=== PATIENT | female | born 1970 | race Caucasian/White ===

== ENCOUNTER → 2020-04-13 14:31 | Outpatient (BNVA) | payer MEDICARE, MEDICAID, SELFPAY | PROVIDERS: Family Provider Internal Medicine; Visit Provider Nurse Practitioner | DX: J45.909 Unspecified asthma, uncomplicated (principal); R05 Cough | CPT/HCPCS: 71046 ==

== ENCOUNTER 2020-07-29 11:39 | Outpatient (CLI) | payer MEDICARE, MEDICAID, SELFPAY ==
--- NOTE | 2020-07-29 11:49 | MM_ITS ---
WS: [id number] BILATERAL SCREENING DIGITAL MAMMOGRAM WITH CAD HISTORY: SCREENING COMPARISON: 07/09/2018, 07/27/2019 and 05/27/2015 Bilateral CC and MLO views submitted. Computer aided detection analyzed. Breast composition: There are scattered areas of fibroglandular density. No suspicious masses, microc alcifications or architectural distortion. Stable parenchymal pattern. Stable 8 mm nodule towards the LEFT axilla tail is probably a lymph node. MM/[id number] IMPRESSION: BI-RADS: 2-Benign FOLLOW UP: 1 Year Follow-up
== END 2020-07-29 11:40 | disposition home or self-care (01) ==
LOC: RADSHAW 11:46
PROVIDERS: PCP Internal Medicine; Visit Provider Internal Medicine
DX: Z12.31 Encounter for screening mammogram for malignant neoplasm of breast (principal)
CPT/HCPCS: 77067

== ENCOUNTER → 2020-12-07 09:33 | Outpatient (BNVA) | payer MEDICARE, MEDICAID, SELFPAY | PROVIDERS: PCP Internal Medicine; Visit Provider Nurse Practitioner Family | DX: A08.4 Viral intestinal infection, unspecified (principal); R11.0 Nausea; R73.9 Hyperglycemia, unspecified | CPT/HCPCS: 36416; 80053; 82962; 83036; 85025 ==

== ENCOUNTER → 2020-12-29 11:43 | Outpatient (BNVA) | payer MEDICARE, MEDICAID, SELFPAY | PROVIDERS: PCP Internal Medicine; Visit Provider Internal Medicine | DX: Z01.812 Encounter for preprocedural laboratory examination (principal); Z20.822 Contact with and (suspected) exposure to COVID-19 | CPT/HCPCS: 87635 ==

== ENCOUNTER 2021-01-02 11:02 | Outpatient (CLI) | payer MEDICARE, MEDICAID, SELFPAY ==
--- NOTE | 2021-01-02 13:28 | PFTS_ITS ---
Date of Study:01/02/21 Date of Dictation: MECHANICS: Forced vital capacity (FVC) is normal. Forced expiratory volume in one second (FEV1) is normal. FEV1/FVC is reduced. FLOW VOLUME LOOP: Reduced flow at all lung volumes. LUNG VOLUMES: Not measured DIFFUSING CAPACITY FOR CARBON MONOXIDE: Not measured. INTERPRETATION: Postbronchodilator spirometry is consistent with mild airflow obstruction. MTDD
== END 2021-01-02 11:03 | disposition home or self-care (01) ==
LOC: RT 11:03
PROVIDERS: PCP Internal Medicine; Visit Provider Internal Medicine
DX: J45.20 Mild intermittent asthma, uncomplicated (principal)
CPT/HCPCS: 94060; J7611

== ENCOUNTER 2021-03-20 11:44 | Outpatient (CLI) | payer MEDICARE, MEDICAID, SELFPAY ==
[2021-03-21 15:57] LABS: Alternaria Alternata (M6) Ige <0.10 kU/L; Alternaria Class 0; Bermuda Class 0; Bermuda Grass (G2) Ige <0.10 kU/L; Cat Dander (E1) Ige 0.51 kU/L; Cat Dander Class 1; Common Ragweed (Short) (W1) Ig 0.63 kU/L; D. Farinae Class 2; Dermatophagoides Class 2; Dermatophagoides Pteronyssinus 1.45 kU/L; Dog Dander (E5) Ige <0.10 kU/L; Dog Dander Class 0; Elm (T8) Ige <0.10 kU/L; Elm Class 0; English Plantain (W9) Ige <0.10 kU/L; English Plantain Class 0; House Dust (Greer) (H1) Ige 0.34 kU/L; House Dust (Hollister- Stier) 0.24 kU/L; House Dust Class 0/1; Immunoglobulin E 44 kU/L (<OR=114); Immunoglobulin E 45 kU/L (<OR=114); Johnson Grass (G10) Ige <0.10 kU/L; Johnson Grass Cl 0; June Grass Class 1; June Grass(Kentucky Blue) (G8) 0.58 kU/L; Lamb'S Quarters (Goose Foot) <0.10 kU/L; Lamb'S Quarters Class 0; Maple (Box Elder) (T1) Ige <0.10 kU/L; Maple Class 0; Meadow Fescue (G4) Ige 0.73 kU/L; Meadow Fescue Class 2; Mucor Racemosus Class 0; Oak (T7) Ige <0.10 kU/L; Oak Class 0; Penicillium Class 0; Penicillium Notatum (M1) Ige <0.10 kU/L; Perennial Rye Grass (G5) Ige 0.62 kU/L; Perennial Rye Grass Class 1; Ragweeed Class 1; Rough Marsh Elder (W16) Ige <0.10 kU/L; Rough Marsh Elder Class 0; Sweet Vernal Class 1; Timothy Grass (G6) Ige 0.55 kU/L; Timothy Grass Class 1
[2021-03-24 10:37] LABS: Aspergillus Fumigatus, Igg Ab, 8.1 mg/L (<=102)
== END 2021-03-20 11:45 | disposition home or self-care (01) ==
LOC: LAB 11:54
PROVIDERS: PCP Internal Medicine; Visit Provider Internal Medicine Pulmonary Disease
DX: J30.89 Other allergic rhinitis (principal)
CPT/HCPCS: 36415; 82785; 86003

== ENCOUNTER 2021-07-10 18:54 | Emergency (ER) | payer OTHER, MEDICAID, SELFPAY ==
[2021-07-10 19:46] VITALS: BP 140/87; PULSE 87; RESP 24; TEMP 36.7; O2SAT 99; BMI 30.4
--- NOTE | 2021-07-10 20:55 | XRR_ITS ---
PROCEDURE INFORMATION: Exam: XR Chest Exam date and time: 07/10/2021 8:55 PM Age: 51 years old Clinical indication: Dyspnea TECHNIQUE: Imaging protocol: XR of the chest. Views: 1 view. COMPARISON: CR XR chest 2V* [id number] 04/13/2020 2:30 PM FINDINGS: Lungs: As seen in mid inspiration, the lungs are clear. Pleural spaces: Unremarkable. No pleural effusion. No pneumothorax. Heart/Mediastinum: Unremarkable. No cardiomegaly. Bones/joints: Unremarkable. XR/XR chest 1V portable [id number] IMPRESSION: No acute findings.
--- NOTE | 2021-07-10 23:00 | PC.NURSE ---
placed pt into ED room and she stated that she would rather go home and LWBS at 2301
== END 2021-07-10 23:01 ==
LOC: ER 19:39
PROVIDERS: Emergency Provider Family Medicine; PCP Internal Medicine
DX: Z53.21 Procedure and treatment not carried out due to patient leaving prior to being seen by health care provider (principal)
CPT/HCPCS: 71045; 71046

== ENCOUNTER → 2021-07-12 15:33 | Outpatient (BNVA) | payer OTHER, MEDICAID, SELFPAY | PROVIDERS: PCP Internal Medicine; Visit Provider Nurse Practitioner Family | DX: R05 Cough (principal) | CPT/HCPCS: 71046; 85025 ==

== ENCOUNTER 2021-07-31 09:22 | Outpatient (CLI) | payer OTHER, MEDICAID, SELFPAY ==
--- NOTE | 2021-07-31 09:29 | MM_ITS ---
WS: [id number] BILATERAL SCREENING DIGITAL MAMMOGRAM WITH CAD HISTORY: SCREENING COMPARISON: 07/29/2020 and 07/27/2019 Bilateral CC and MLO views submitted. Computer aided detection analyzed. Breast composition: The breasts are heterogeneously dense, which may obscure small masses. No suspici ous masses, microcalcifications or architectural distortion. Well-circumscribed high density mass juan suring 8 mm in the superior posterior LEFT breast is stable. Benign cluster of calcifications in the anterior RIGHT breast. MM/[id number] IMPRESSION: BI-RADS: 2-Benign FOLLOW UP: 1 Year Follow-up
== END 2021-07-31 09:23 | disposition home or self-care (01) ==
LOC: RADSHAW 09:27
PROVIDERS: PCP Internal Medicine; Visit Provider Nurse Practitioner Family
DX: Z12.31 Encounter for screening mammogram for malignant neoplasm of breast (principal)
CPT/HCPCS: 77067

== ENCOUNTER → 2022-05-28 08:54 | Outpatient (BNVA) | payer MEDICARE, MEDICAID, SELFPAY | PROVIDERS: PCP Internal Medicine; Visit Provider Internal Medicine Pulmonary Disease | DX: J82.83 Eosinophilic asthma (principal); J45.50 Severe persistent asthma, uncomplicated; Z79.52 Long term (current) use of systemic steroids; R09.82 Postnasal drip; Z91.09 Other allergy status, other than to drugs and biological substances | CPT/HCPCS: 71046; 99214 ==

== ENCOUNTER → 2022-07-27 08:52 | Outpatient (BNVA) | payer MEDICARE, MEDICAID, SELFPAY | PROVIDERS: PCP Internal Medicine; Visit Provider Internal Medicine Pulmonary Disease | DX: J45.50 Severe persistent asthma, uncomplicated (principal); R09.82 Postnasal drip; Z79.52 Long term (current) use of systemic steroids; Z91.09 Other allergy status, other than to drugs and biological substances; J82.83 Eosinophilic asthma | CPT/HCPCS: 99214 ==

== ENCOUNTER 2022-08-13 11:52 | Outpatient (CLI) | payer MEDICARE, MEDICAID, SELFPAY ==
--- NOTE | 2022-08-13 12:59 | MM_ITS ---
WS: [id number] BILATERAL 3D TOMOSYNTHESIS DIGITAL SCREENING MAMMOGRAPHY WITH CAD CLINICAL INFORMATION: SCREENING HISTORY: Screening mammogram. No current complaints. COMPARISON: July 31, 2021 TECHNIQUE: Bilateral CC and MLO views. FINDINGS: The breasts are composed of heterogeneous fibroglandular density tissue, which can limit the detectio n of small underlying mass lesions. No suspicious mass, asymmetry, calcifications, or architectural d istortion. No evidence of malignancy. Lucent centered calcification RIGHT breast. MM/[place] [id number] IMPRESSION: BI-RADS: 2-Benign FOLLOW UP: 1 Year Follow-up Recommend return to annual screening mammography.
== END 2022-08-13 11:53 | disposition home or self-care (01) ==
LOC: RAD 11:52
PROVIDERS: PCP Internal Medicine; Visit Provider Internal Medicine
DX: Z12.31 Encounter for screening mammogram for malignant neoplasm of breast (principal)
CPT/HCPCS: 77063; 77067

== ENCOUNTER 2022-10-29 12:39 | Outpatient (CLI) | payer MEDICARE, MEDICAID, SELFPAY | END 2022-10-29 12:40 | disposition home or self-care (01) | PROVIDERS: PCP Internal Medicine; Visit Provider Internal Medicine | DX: J45.41 Moderate persistent asthma with (acute) exacerbation (principal) | CPT/HCPCS: 94060; 94729; J7613 ==

== ENCOUNTER 2023-01-07 10:43 | Outpatient (CLI) | payer MEDICARE, MEDICAID, SELFPAY ==
--- NOTE | 2023-01-07 10:58 | XRR_ITS ---
PROCEDURE INFORMATION: Exam: XR Right Shoulder Exam date and time: 01/07/2023 11:19 AM Age: 52 years old Clinical indication: Pain; Shoulder; Right; Additional info: Pain in R shoulder TECHNIQUE: Imaging protocol: Radiologic exam of the right shoulder. Views: 2 or more views. COMPARISON: CR XR chest 2V* [id number] 07/12/2021 3:33 PM FINDINGS: Bones/joints: Negative for acute bony abnormality. Soft tissues: Normal. XR/XR shoulder RT min 2V* [id number] IMPRESSION: No acute findings.
== END 2023-01-07 10:44 | disposition home or self-care (01) ==
LOC: RAD 10:48
PROVIDERS: PCP Internal Medicine; Visit Provider Internal Medicine
DX: M25.511 Pain in right shoulder (principal)
CPT/HCPCS: 73030

== ENCOUNTER 2023-01-21 06:00 | Outpatient (RCR) | payer MEDICARE, MEDICAID, SELFPAY | END 2023-02-10 23:59 | disposition home or self-care (01) | LOC: APT 06:00 | PROVIDERS: Visit Provider Nurse Practitioner Family | DX: M25.511 Pain in right shoulder (principal) | CPT/HCPCS: 97110; 97161 ==

== ENCOUNTER 2023-02-11 06:00 | Outpatient (RCR) | payer MEDICARE, MEDICAID, SELFPAY | END 2023-03-13 23:59 | disposition home or self-care (01) | LOC: APT 06:00 | PROVIDERS: Visit Provider Nurse Practitioner Family | DX: M25.511 Pain in right shoulder (principal) | CPT/HCPCS: 97110; 97112; 97530 ==

== ENCOUNTER 2023-02-17 14:25 | Emergency (ER) | payer MEDICARE, MEDICAID, SELFPAY ==
[2023-02-17 14:32] VITALS: BP 143/93; PULSE 89; RESP 24; O2SAT 94
--- NOTE | 2023-02-17 14:44 | XRR_ITS ---
PROCEDURE INFORMATION: Exam: XR Chest Exam date and time: 02/17/2023 2:49 PM Age: 53 years old Clinical indication: Cough and shortness of breath; Additional info: Cough and congestion TECHNIQUE: Imaging protocol: Radiologic exam of the chest. Views: 1 view. COMPARISON: CR XR chest 2V* [id number] 07/12/2021 3:33 PM FINDINGS: Lungs: Scattered granulomas are seen in both lungs stable since prior The lungs are otherwise expanded and clear. No consolidation. Pleural spaces: Unremarkable. No pleural effusion. No pneumothorax. Heart/Mediastinum: Unremarkable. No cardiomegaly. Bones/joints: Unremarkable. XR/XR chest 1V portable [id number] IMPRESSION: 1. A few scattered granulomas in both lungs 2. Otherwise No acute findings.
--- NOTE | 2023-02-17 14:49 | ECG_ITS ---
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 Measurements Intervals Milton Rate: 86 P: 66 NJ: 159 QRS: 16 QRSD: 92 T: 58 QT: 349 QTc: 420 Interpretive Statements SINUS RHYTHM Compared to ECG 11/08/2017 17:04:17 T-wave abnormality no longer present Electronically Signed On 02-17-2023 16:20:56 CDT by Omar May M.D. [id number]
--- NOTE | 2023-02-17 15:03 | ED_ITS ---
HPI - SOB/Dyspnea General: Chief Complaint: Shortness of Breath/Dyspnea Stated Complaint: SOB Time Seen by Provider: 02/17/23 14:40 History of Present Illness: HPI Narrative: 53-year-old female presents emergency department chief complaint of progressive shortness of breath and difficulty breathing apparently when the patient got home from [employer] people are outside cutting the grass when she developed significant shortness of breath wheezing and difficulty breathing patient has a known history of emphysema as well as asthma. EMS was contacted which gave her Solu-Medrol and neb treatment prior to arrival patient reports improvement of her symptoms he reports no current chest pain or palpitations or any other associated issues. Associated symptoms: Deny abdominal pain, chest pain, extremity pain, fever(s), nausea, palpitations or vomiting Review of Systems General: Reports: 10 or more systems reviewed and unremarkable except in HPI and below Const: Denies: fever(s), chills, fatigue or malaise Eyes: Denies: change in vision or blurry vision Card: Denies: chest pain or palpitations Resp: Reports: dyspnea, productive cough and wheezing GI: Denies: abdominal pain, nausea or vomiting : Denies: flank pain Musc: Denies: extremity pain or extremity swelling Skin/Breast: Denies: rash or pruritus Neuro: Denies: headache(s) Psych: Denies: anxiety or depression Sarabjit/Lymph: Denies: easy bleeding All/Imm: Denies: urticaria, throat swelling or facial swelling PFS ED PFSH: Medical History (Updated 02/17/23 @ 18:48 by Josh Morin) Anxiety Asthma Depression Surgical History History of cholecystectomy History of hysterectomy History of tubal ligation Family History Other Heart disease Denies family history of Bleeding disorder Social History Smoking and tobacco status: never smoked Second hand smoke exposure: Yes Smoking risk assessment/counseling performed?: No Alcohol intake: never Desire information about alcohol rehabilitation?: No Counseling given: No Substance/Drug Use: never Desire information about substance/drug rehabilitation?: No Counseling given: No Adopted: No Caregiver/support person: No Lives independently: Yes Household members: none Housing: House Marital status: Single Number of children: 0 service: No Current occupational status: employed Pets and animals: Yes Do you think of yourself as: Straight/Heterosexual Current gender identity: Female Physical Exam Narrative: EXAM NARRATIVE: Patient appears currently nontoxic appears in no acute respiratory distress Const: COMMON NORMALS: no acute distress, patient oriented x3 and healthy appearing HENMT: COMMON NORMALS: normocephalic and atraumatic HEAD & SCALP: normocephalic and atraumatic Eye: COMMON NORMALS: Equal, round and reactive pupils present and EOMs intact bilaterally PUPIL: Yes Equal, round and reactive pupils present Neck/C-Spine: COMMON NORMALS: full ROM, supple and no JVD Lymph: LYMPHATIC: no lymphadenopathy noted Chest: COMMONS NORMALS: normal inspection of the chest and normal palpation of entire chest wall Resp: OTHER: Diminished breath sounds present bilaterally with no obvious wheezing crackles rales or rhonchi noted currently mild tachypnea apparent Cardio: COMMON NORMALS: no JVD, regular rate and regular rhythm RATE: regular rate RHYTHM: regular rhythm GI: COMMON NORMALS: Normal to inspection, nondistended, normoactive bowel sounds present, Soft to palpation and non-tender INSPECTION: Yes normal to inspection PALPATION: Yes Soft to palpation : COMMON NORMALS: Yes no CVA tenderness BLADDER/KIDNEY EXAM: Yes no CVA tenderness Back/Pelvis: COMMON NORMALS: no CVA tenderness Extremity: COMMON NORMALS: normal to inspection and full ROM Neuro: COMMON NORMALS: patient oriented x3, CN's II-XII intact bilaterally, moves all extremities and no focal motor deficits Psych: COMMON NORMALS: mental status grossly normal, Normal thought process present, cooperative and normal affect THOUGHT PROCESS: Normal thought process present Skin: COMMON NORMALS: no rashes or lesions noted GENERAL SKIN EXAM: no rashes or lesions noted Course Vital Signs: Vital signs: Vital Signs Pulse Rate 75 02/17/23 18:35 Respiratory Rate 24 H 02/17/23 14:32 Blood Pressure 143/93 02/17/23 14:32 Pulse Oximetry 95 02/17/23 18:35 Oxygen Delivery Me thod Room Air 02/17/23 18:35 Oxygen Flow Rate 1 02/17/23 14:32 MDM - SOB/Dyspnea Medical Decision Making Patient's symptoms and condition Concern for asthma exacerbation versus acute bronchitis I will continue to follow and treat as needed. Lab work and imaging came back reassuring also tachycardia patient is to our troponin came back unremarkable patient will be treated as acute bronchitis versus acute asthma exacerbation did advise patient further follow-up with primary care in 3 to 5 days in which she was advised to return the interim if any of her symptoms persist or worse. Lab Data 02/17/23 15:23 02/17/23 15:23 Labs/Radiology: Radiology Impressions Chest X-Ray 02/17/23 14:44 IMPRESSION: 1. A few scattered granulomas in both lungs 2. Otherwise No acute findings. Laboratory Results WBC 8.3 10^3/uL (4.0-10.0) 02/17/23 15: RBC 4.19 10^6/uL (4.1-5.3) 02/17/23 15: Hgb 11.8 g/dL (11.5-15.3) 02/17/23 15:23 Hct 36.7 % (37.0-47.0) L 02/17/23 15: MCV 87.6 fl (81-99) 02/17/23 15:23 MCH 28.2 pg (28.0-34.0) 02/17/23 15: MCHC 32.2 g/dL (30.0-36.0) 02/17/23 15: RDW 13.5 % (12.1-15.1) 02/17/23 15: Plt Count 348 10^3/cmm (130-400) 02/17/23 15: MPV 8.6 fL (7.4-10.4) 02/17/23 15:23 Neut % (Auto) 85.4 % 02/17/23 15:23 Lymph % (Auto) 5.8 % 02/17/23 15:23 Meigs % (Auto) 6.8 % 02/17/23 15:23 Eos % (Auto) 1.3 % 02/17/23 15: Baso % (Auto) 0.2 % 02/17/23 15:23 Neut # (Auto) 7.12 10^3/uL (1.8-7.7) 02/17/23 15:23 Lymph # (Auto) 0.5 10^3/uL (0.8-4.8) L 02/17/23 15:23 Meigs # (Auto) 0.6 10^3/uL (0.2-0.9) 02/17/23 15:23 Eos # (Auto) 0.1 10^3/uL (0.0-0.8) 02/17/23 15:23 Baso # (Auto) 0.0 10^3/uL (0.0-0.1) 02/17/23 15:23 Nucleated RBC % (auto) 0 % 02/17/23 15: Nucleated RBCs # 0.0 /100WBC 02/17/23 15:23 Sodium 136 mmol/L (136-145) 02/17/23 15:23 Potassium 3.7 mmol/L (3.5-5.1) 02/17/23 15: Chloride 99 mmol/L (98-107) 02/17/23 15: Carbon Dioxide 19 mmol/L (22-29) L 02/17/23 15: Anion Gap 21.7 (5-19) H 02/17/23 15: BUN 8 mg/dL (6-20) 02/17/23 15:23 Creatinine 0.7 mg/dL (0.5-0.9) 02/17/23 15:23 GFR Calculation 87.2 mL/min (90-130) L 02/17/23 15: Glucose 99 mg/dL (65-115) 02/17/23 15: Calculated Osmolality 280 mOsm/kg (285-295) L 02/17/23 15:23 Calcium 9.4 mg/dL (8.5-10.5) 02/17/23 15:23 Total Bilirubin 0.2 mg/dL (0.15-1.2) 02/17/23 15:23 AST 21 U/L (0-32) 02/17/23 15:23 ALT 24 U/L (0-33) 02/17/23 15:23 Alkaline Phosphatase 82 U/L (35-105) 02/17/23 15:23 Troponin T Baseline 6 ng/L (0-10) 02/17/23 15:23 Troponin T 120 Minute 6.00 ng/L (0-10) 02/17/23 17:25 Delta Troponin T 0 ABS# (0-10) 02/17/23 17:25 NT-Pro-B Natriuret Pep 108 pg/mL (0-125) 02/17/23 15:23 Total Protein 7.4 g/dL (6.6-8.7) 02/17/23 15:23 Albumin 4.4 g/dL (3.5-5.2) 02/17/23 15:23 Globulin 3.0 g/dL (1.3-4.6) 02/17/23 15:23 Discharge Plan Discharge Patient Disposition: Home Clinical Impression: Asthma with exacerbation Condition: Stable Prescriptions: New prednisone 20 mg tablet 20 mg PO BID 7 Days Qty: 14 0RF albuterol sulfate 90 mcg/actuation HFA aerosol inhaler 2 inh inhalation Q4H PRN (Reason: shortness of breath or wheezing) Qty: 6.7 0RF benzonatate 100 mg capsule 100 mg PO TID PRN (Reason: cough) Qty: 14 0RF No Action ondansetron HCl [Zofran] 4 mg tablet 4 mg PO Q8H PRN (Reason: nausea and vomiting) 3 Days Qty: 9 0RF albuterol sulfate 90 mcg/actuation HFA aerosol inhaler 2 puff INHALATION Q6H PRN (Reason: Shortness Of Breath) venlafaxine [Effexor XR] 150 mg capsule,extended release 24hr 150 mg PO DAILY montelukast [Singulair] 10 mg tablet 10 mg PO DAILY topiramate [Topamax] 25 mg tablet 25 mg PO DAILY azqcohwzry-cabiqxvmyebrv-wzlh [Esgic] 50-325-40 mg tablet 1 tab PO Q4H PRN (Reason: pain) Qty: 30 0RF triamcinolone acetonide 0.1 % cream 1 applic topical TID Qty: 30 0RF Rx Instructions: large area generalized body pantoprazole 40 mg tablet,delayed release (DR/EC) 40 mg PO DAILY ferrous gluconate 324 mg (37.5 mg iron) tablet 324 mg PO DAILY fluticasone propionate 50 mcg/actuation spray,suspension 2 spray intranasal DAILY Rx Instructions: administer into each nostril budesonide-formoterol [Symbicort] 160-4.5 mcg/actuation HFA aerosol inhaler 2 puff inhalation BID cetirizine 10 mg tablet 10 mg PO DAILY PRN (Reason: Allergy Symptoms) budesonide 0.5 mg/2 mL suspension for nebulization 0.5 mg inhalation BID formoterol fumarate [Perforomist] 20 mcg/2 mL solution for nebulization 2 ml inhalation BID atorvastatin 20 mg Tablet 20 mg PO BEDTIME amlodipine 5 mg Tablet 5 mg PO DAILY meloxicam 7.5 mg Tablet 7.5 mg PO DAILY PRN (Reason: Pain) Discharge Orders: Discharge ED (Routine); Ordered 02/17/23 Ordered By: Josh Morin Referrals: [facility], [place], [Staff Physician] - 1-3 days Discharge Diet: Advance as tolerated Discharge Activity: Increase activity as tolerated Patient Instructions: Asthma Exacerbation - Adult, Bronchospasm (ED) Activity Restrictions/Additional Instructions: Please further follow-up with your primary care doctor in 2 to 3 days, please take medication as prescribed and please return the interim if any of your symptoms persist or worse Coding Level of Care Code ED Newborn Photographer for Sofia Tompkins
[2023-02-17 15:33] LABS: Basophils % 0.2 %; Eosinophils # 0.1 10^3/uL (0.0-0.8); Eosinophils % 1.3 %; Hematocrit 36.7 % (37.0-47.0); Hemoglobin 11.8 g/dL (11.5-15.3); Lymphocytes # 0.5 10^3/uL (0.8-4.8); Lymphocytes % 5.8 %; Mean Corpuscular HGB Conc 32.2 g/dL (30.0-36.0); Mean Corpuscular Hemoglobin 28.2 pg (28.0-34.0); Mean Corpuscular Volume 87.6 fl (81-99); Mean Platelet Volume 8.6 fL (7.4-10.4); Monocytes # 0.6 10^3/uL (0.2-0.9); Monocytes % 6.8 %; Neutrophils # 7.12 10^3/uL (1.8-7.7); Neutrophils % 85.4 %; Nucleated Red Blood Cells % 0 %; Platelet Count 348 10^3/cmm (130-400); Red Blood Count 4.19 10^6/uL (4.1-5.3); Red Cell Distribution Width 13.5 % (12.1-15.1); White Blood Count 8.3 10^3/uL (4.0-10.0)
[2023-02-17 16:05] LABS: Troponin(5th) Baseline 6 ng/L (0-10)
[2023-02-17 16:11] LABS: Alanine Aminotransferase 24 U/L (0-33); Albumin Level 4.4 g/dL (3.5-5.2); Alkaline Phosphatase 82 U/L (35-105); Anion Gap 21.7 (5-19); Aspartate Amino Transferase 21 U/L (0-32); Blood Urea Nitrogen 8 mg/dL (6-20); Calcium 9.4 mg/dL (8.5-10.5); Carbon Dioxide 19 mmol/L (22-29); Chloride 99 mmol/L (98-107); Glomerular Filtration Rate 87.2 mL/min (90-130); Glucose 99 mg/dL (65-115); NT Pro B Type Natriuretic Pept 108 pg/mL (0-125); Osmolality Calculated 280 mOsm/kg (285-295); Potassium 3.7 mmol/L (3.5-5.1); Sodium 136 mmol/L (136-145); Total Bilirubin 0.2 mg/dL (0.15-1.2); Total Protein 7.4 g/dL (6.6-8.7)
[2023-02-17 18:35] VITALS: PULSE 75; O2SAT 95
[2023-02-17 18:48] LABS: Troponin 5 2HR Delta 0 ABS# (0-10)
[2023-02-17 19:34] VITALS: BP 143/93; PULSE 75; RESP 24; O2SAT 95
--- NOTE | 2023-02-17 19:35 | PC.NURSE ---
Upon initial pt assessment at 1900, RN noted 20G PIV in the L hand of pt. PIV was noted to be patent and intact with venaguard dressing properly applied.
--- NOTE | 2023-02-28 12:27 | DCPLANNER ---
ultrasound manager called patient due to no primary care physician - no answer at this time
== END 2023-02-17 19:37 | disposition home or self-care (01) ==
PROVIDERS: Emergency Provider Emergency Medicine
DX: J45.901 Unspecified asthma with (acute) exacerbation (principal); Z77.22 Contact with and (suspected) exposure to environmental tobacco smoke (acute) (chronic)
CPT/HCPCS: 36415; 71045; 80053; 83880; 84484; 85025; 93005; 99285

== ENCOUNTER 2023-05-06 10:48 | Outpatient (CLI) | payer MEDICARE, MEDICAID, SELFPAY ==
--- NOTE | 2023-05-06 11:12 | XRR_ITS ---
PROCEDURE INFORMATION: Exam: XR Chest Exam date and time: 05/06/2023 11:32 AM Age: 53 years old Clinical indication: Condition or disease; Lung condition and disease; Asthma; Moderate persistent; Additional info: Moderate persistent controlled asthma TECHNIQUE: Imaging protocol: Radiologic exam of the chest. Views: 2 views. COMPARISON: CR XR chest 1V portable [id number] 02/17/2023 2:49 PM FINDINGS: Lungs: Small indistinct left lingular infiltrate new, suspicious for pneumonia. Bibasilar platelike atelectasis progressed from previous exam. Scattered small granulomas both lung oconnor, stable, chronic.. Pleural spaces: Unremarkable. No pleural effusion. No pneumothorax. Heart/Mediastinum: Unremarkable. No cardiomegaly. Bones/joints: Unremarkable for age. XR/XR chest 2V* [id number] IMPRESSION: Small left lingular infiltrate suspicious for pneumonia and bibasilar platelike atelectasis.
== END 2023-05-06 10:49 | disposition home or self-care (01) ==
LOC: RAD 10:53
PROVIDERS: PCP Internal Medicine; Visit Provider Internal Medicine
DX: J45.40 Moderate persistent asthma, uncomplicated (principal); R91.8 Other nonspecific abnormal finding of lung field
CPT/HCPCS: 71046

== ENCOUNTER 2023-05-20 08:41 | Outpatient (CLI) | payer MEDICARE, MEDICAID, SELFPAY ==
--- NOTE | 2023-05-20 08:54 | XR_ITS ---
WS: [id number] XR chest 2V* [id number] REASON FOR EXAM: CONTROLLED MODERATE PERSISTENT ASTHMA FINDINGS: Previously demonstrated left lingular opacity has undergone significant resolution with residual line ar opacities presumed to represent atelectasis. The right lower lung appears unchanged. Thoracic aorta and mediastinum are within normal limits. The heart is at the upper limits of normal in size. Calcified granulomatous disease in both hemithoraces. Mild/moderate hyperinflation with flattening of the hemidiaphragms on the lateral view. Mild thoracic scoliosis convex left with moderate disc space narrowing and osteophytosis in the mid a nd lower thoracic spine. XR/XR chest 2V* [id number] IMPRESSION: Hyperexpansion. Partial resolution of previously identified left lingular opacity as above. No change in the right lower lung.
== END 2023-05-20 08:42 | disposition home or self-care (01) ==
LOC: RAD 08:46
PROVIDERS: PCP Internal Medicine; Visit Provider Internal Medicine
DX: J45.40 Moderate persistent asthma, uncomplicated (principal)
CPT/HCPCS: 71046

== ENCOUNTER 2023-06-03 09:23 | Outpatient (CLI) | payer MEDICARE, MEDICAID, SELFPAY ==
--- NOTE | 2023-06-03 09:35 | XRR_ITS ---
PROCEDURE INFORMATION: Exam: XR Chest Exam date and time: 06/03/2023 9:49 AM Age: 53 years old Clinical indication: Condition or disease; Lung condition and disease; Asthma; Shortness of breath; Additional info: Moderate persistent controlled asthma TECHNIQUE: Imaging protocol: Radiologic exam of the chest. Views: 2 views. COMPARISON: 1. CR XR chest 2V* [id number] 05/20/2023 8:59 AM 2. CR XR chest 1V portable [id number] 07/10/2021 9:07 PM FINDINGS: Lungs: There is no consolidation. There are scattered radiodense nodules in both lungs, stable since 07/12/2021 and consistent with calcified granulomas. There is no consolidation. Pleural spaces: There is no pleural effusion or pneumothorax. Heart/Mediastinum: Cardiomediastinal contours are unremarkable. Bones/joints: Bones are unremarkable. XR/XR chest 2V* [id number] IMPRESSION: No acute findings.
== END 2023-06-03 09:24 | disposition home or self-care (01) ==
PROVIDERS: PCP Internal Medicine; Visit Provider Internal Medicine
DX: J45.40 Moderate persistent asthma, uncomplicated (principal)
CPT/HCPCS: 71046

== ENCOUNTER → 2023-07-08 12:10 | Outpatient (BNVA) | payer MEDICARE, MEDICAID, SELFPAY | PROVIDERS: PCP Internal Medicine; Visit Provider Internal Medicine Pulmonary Disease | DX: J82.83 Eosinophilic asthma (principal); Z77.22 Contact with and (suspected) exposure to environmental tobacco smoke (acute) (chronic); R09.82 Postnasal drip | CPT/HCPCS: 99214 ==

== ENCOUNTER 2023-08-19 08:30 | Outpatient (CLI) | payer MEDICARE, MEDICAID, SELFPAY ==
--- NOTE | 2023-08-19 08:42 | MM_ITS ---
WS: [id number] BILATERAL SCREENING DIGITAL TOMOSYNTHESIS MAMMOGRAM WITH CAD HISTORY: SCREENING COMPARISON: 08/13/2022 and 07/31/2021 Bilateral CC and MLO views with tomosynthesis and synthetic mammography submitted. Computer aided det ection analyzed. Breast composition: The breasts are heterogeneously dense, which may obscure small masses. No suspici ous masses, microcalcifications or architectural distortion. Benign calcification in the anterior RIG HT breast IMPRESSION: MM/[place] [id number] BI-RADS: 2-Benign FOLLOW UP: 1 Year Follow-up
== END 2023-08-19 08:31 | disposition home or self-care (01) ==
LOC: RAD 08:31
PROVIDERS: PCP Internal Medicine; Visit Provider Internal Medicine
DX: Z12.31 Encounter for screening mammogram for malignant neoplasm of breast (principal)
CPT/HCPCS: 77063; 77067

== ENCOUNTER 2023-09-10 07:49 | Emergency (ER) | payer MEDICARE, MEDICAID, SELFPAY ==
--- NOTE | 2023-09-10 | CT_ITS ---
WS: [id number] CT ABDOMEN PELVIS TECHNIQUE: Noncontrast CT of the abdomen and pelvis with coronal and sagittal reformatted images. CLINICAL INFORMATION: RLQ PAIN COMPARISON: None. DLP: 697 mgy/cm All CT scans at [facility] use at least one of these dose optimization techniques: automated e xposure control; mA and/or kV adjustment per patient size (includes targeted exams where dose is matc hed to clinical indication); or iterative reconstruction. FINDINGS: Prior hysterectomy. Diffuse thickening with induration and inflammatory stranding about the RIGHT col on extend to the hepatic flexure and proximal transverse colon compatible with infectious or inflamma tory colitis. A few reactive lymph nodes. Recommend correlation with infectious symptoms. No free air. Subsegmental atelectasis in the lung bases. Calcite granulomas in the lung bases. Single tiny noncalcified nodule LEFT lower lobe measuring 3 mm. Hepatomegaly. Noncontrast liver is otherwise normal. Normal noncontrast spleen. Small esophageal hiat al hernia. Adrenal glands are normal. No hydronephrosis in either kidney. Disc space narrowing worse at L5-S1. Vacuum disc phenomenon L4-5 with mild disc bulging and moderate central canal stenosis. Thi s can be followed up with MRI lumbar spine. IMPRESSION: 1. RIGHT colon and proximal transverse colon colitis described above with reactive lymph nodes. 2. No free air. 3. Hepatomegaly. 4. Prior hysterectomy. 5. Moderate central canal stenosis L4-5 due to central disc bulging in combination with facet arthro radha and ligamentum flavum hypertrophy. This could be further evaluated with MRI lumbar spine on an elective basis. This is new since 2018. Notified Milton Boyd DO at 09/10/2023 9:30 AM.
--- NOTE | 2023-09-10 07:56 | ECG_ITS ---
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 Measurements Intervals [place] Rate: 91 P: 67 DE: 165 QRS: -14 QRSD: 77 T: 67 QT: 329 QTc: 407 Interpretive Statements SINUS RHYTHM LOW QRS VOLTAGE IN PRECORDIAL LEADS [QRS DEFLECTION < 1.0 mV IN CHEST LEADS] NONSPECIFIC T-WAVE ABNORMALITY Compared to ECG 02/17/2023 14:49:50 Low QRS voltage now present T-wave abnormality now present Electronically Signed On 09-10-2023 17:16:26 COMMUNICATION CENTER COORDINATOR by Clarita Diehl M.D. [id number]
--- NOTE | 2023-09-10 09:09 | W.ED.ABDPA2 ---
HPI - Abdominal Pain General: Stated Complaint: Backpain, sob, N/V/D Source: patient Mode of arrival: EMS History of Present Illness: 53-year-old female who presents to the emergency room complaining of nausea vomiting diarrhea abdominal discomfort. She denies any fever sweats or chills denies any hematochezia or melena, no hematemesis. Denies dysuria urgency or frequency. Has not been feeling well since last evening. Associated Symptoms: Denies chills, dysuria and fever(s) Review of Systems Const: Denies: fever(s) or chills Card: Denies: chest pain Resp: Denies: dyspnea GI: Denies: abdominal pain : Denies: dysuria, urinary frequency or urinary urgency Musc: Denies: neck pain or back pain Skin/Breast: Denies: rash PFSH ED PFSH: Medical History (Updated 09/10/23 @ 11:02 by Milton Boyd DO) Anxiety Depression Asthma Surgical History History of tubal ligation History of cholecystectomy History of hysterectomy Family History Other Heart disease Denies family history of Bleeding disorder Social History Smoking and tobacco/nicotine status: never used tobacco/nicotine Second hand smoke exposure: Yes Alcohol intake: never Substance/Drug Use: never Adopted: No Caregiver/support person: No Lives independently: Yes Household members: none Housing: House Marital status: Single Number of children: 0 service: No Current occupational status: employed Pets and animals: Yes Do you think of yourself as: Straight/Heterosexual Current gender identity: Female Physical Exam Const: GENERAL APPEARANCE: cooperative and comfortable ORIENTATION/CONSCIOUSNESS: Yes awake, Yes oriented to person, Yes oriented to place and Yes oriented to time HENMT: COMMON NORMALS: normocephalic, atraumatic and hearing grossly normal bilaterally HEAD & SCALP: normocephalic and atraumatic Resp: COMMON NORMALS: normal respiratory effort, No retractions, No use of accessory muscles and clear to auscultation bilaterally AUSCULTATION: clear to auscultation bilaterally Cardio: COMMON NORMALS: regular rate, regular rhythm and No murmurs present (Cardio) RATE: regular rate RHYTHM: regular rhythm GI: COMMON NORMALS: No hepatosplenomegaly present AUSCULTATION: Yes normoactive bowel sounds PALPATION: Yes Tenderness to palpation present (GI) (Diffuse), No Guarding due to palpation present (GI) and Yes No hepatosplenomegaly present Extremity: COMMON NORMALS: normal to inspection, capillary refill normal, no clubbing, cyanosis or edema, no calf tenderness and no pedal edema Neuro: SENSORIUM/ORIENTATION: Yes oriented to person, Yes oriented to place and Yes oriented to time Skin: COMMON NORMALS: no rashes or lesions noted GENERAL SKIN EXAM: no rashes or lesions noted MDM - Abdominal Pain Medical Decision Making CT shows colitis, right common proximal transverse colon. Started on Cipro and Flagyl. Follow-up with primary care if persist may need further evaluation including possible endoscopy if worsens return to the emergency room. Clear liquid diet for 24 to 48 hours and advance as tolerated. Medical Records I reviewed the patient's medical records. Lab Data I reviewed the patient's lab results. 09/10/23 08:13 09/10/23 08:13 Labs/Radiology: Laboratory Results WBC 18.69 10^3/uL (3.29-11.43) H 09/10/23 08:13 RBC 4.00 10^6/uL (3.85-5.65) 09/10/23 08:13 Hgb 10.50 g/dL (11.27-16.99) L 09/10/23 08:13 Hct 33.9 % (36-47) L 09/10/23 08:13 MCV 84.8 fl (85-98) L 09/10/23 08:13 MCH 26.3 pg (27-33) L 09/10/23 08:13 MCHC 31.0 g/dL (30-55) 09/10/23 08:13 RDW 14.1 % (12.1-15.1) 09/10/23 08:13 Plt Count 405 10^3/cmm (157-399) H 09/10/23 08:13 MPV 9.5 fL (7.4-10.4) 09/10/23 08:13 Neut % (Auto) 87.3 % 09/10/23 08:13 Lymph % (Auto) 3.5 % 09/10/23 08:13 [place] % (Auto) 8.6 % 09/10/23 08:13 Eos % (Auto) 0.0 % 09/10/23 08:13 Baso % (Auto) 0.2 % 09/10/23 08:13 Neut # (Auto) 16.32 10^3/uL (1.8-7.7) H 09/10/23 08:13 Lymph # (Auto) 0.7 10^3/uL (0.8-4.8) L 09/10/23 08:13 [place] # (Auto) 1.6 10^3/uL (0.2-0.9) H 09/10/23 08:13 Eos # (Auto) 0.0 10^3/uL (0.0-0.8) 09/10/23 08:13 Baso # (Auto) 0.0 10^3/uL (0.0-0.1) 09/10/23 08:13 Nucleated RBC % (auto) 0 % 09/10/23 08:13 Nucleated RBCs # 0.0 /100WBC 09/10/23 08:13 Sodium 137 mmol/L (136-145) 09/10/23 08:13 Potassium 3.9 mmol/L (3.5-5.1) 09/10/23 08:13 Chloride 102 mmol/L (98-107) 09/10/23 08:13 Carbon Dioxide 21 mmol/L (22-29) L 09/10/23 08:13 Anion Gap 17.9 (5-19) 09/10/23 08:13 BUN 12 mg/dL (6-20) 09/10/23 08:13 Creatinine 0.8 mg/dL (0.5-0.9) 09/10/23 08:13 GFR Calculation 74.7 mL/min (90-130) L 09/10/23 08:13 Glucose 119 mg/dL (65-115) H 09/10/23 08:13 Calculated Osmolality 285 mOsm/kg (285-295) 09/10/23 08:13 Calcium 8.9 mg/dL (8.5-10.5) 09/10/23 08:13 Total Bilirubin 0.3 mg/dL (0.15-1.2) 09/10/23 08:13 AST 19 U/L (0-32) 09/10/23 08:13 ALT 16 U/L (0-33) 09/10/23 08:13 Alkaline Phosphatase 89 U/L (35-105) 09/10/23 08:13 Total Protein 6.8 g/dL (6.6-8.7) 09/10/23 08:13 Albumin 4.0 g/dL (3.5-5.2) 09/10/23 08:13 Globulin 2.8 g/dL (1.3-4.6) 09/10/23 08:13 Lipase 17 U/L (13-60) 09/10/23 08:13 Urine Color Cancelled 09/10/23 08:13 Urine Appearance Cancelled 09/10/23 08:13 Urine pH Cancelled 09/10/23 08:13 Ur Specific [place] Cancelled 09/10/23 08:13 Urine Protein Cancelled 09/10/23 08:13 Urine Glucose (UA) Cancelled 09/10/23 08:13 Urine Ketones Cancelled 09/10/23 08:13 Urine Blood Cancelled 09/10/23 08:13 Urine Nitrate Cancelled 09/10/23 08:13 Urine Bilirubin Cancelled 09/10/23 08:13 Prot Sulfosalicylic Acd Cancelled 09/10/23 08:13 Urine Urobilinogen Cancelled 09/10/23 08:13 Ur Leukocyte Esterase Cancelled 09/10/23 08:13 All radiology interpretation(s) finalized by discharge Discharge Plan Discharge Patient Disposition: Home Clinical Impression: Colitis Condition: Stable Prescriptions: New Cipro 500 mg tablet 500 mg PO BID Qty: 20 0RF metronidazole 500 mg tablet 500 mg PO BID 10 Days Qty: 20 0RF No Action ondansetron HCl [Zofran] 4 mg tablet 4 mg PO Q8H PRN (Reason: nausea and vomiting) 3 Days Qty: 9 0RF venlafaxine [Effexor XR] 150 mg capsule,extended release 24hr 150 mg PO DAILY montelukast [Singulair] 10 mg tablet 10 mg PO DAILY topiramate [Topamax] 25 mg tablet 25 mg PO DAILY triamcinolone acetonide 0.1 % cream 1 applic topical TID Qty: 30 0RF Rx Instructions: large area generalized body pantoprazole 40 mg tablet,delayed release (DR/EC) 40 mg PO DAILY ferrous gluconate 324 mg (37.5 mg iron) tablet 324 mg PO DAILY fluticasone propionate 50 mcg/actuation spray,suspension 2 spray intranasal DAILY Rx Instructions: administer into each nostril cetirizine 10 mg tablet 10 mg PO DAILY PRN (Reason: Allergy Symptoms) lovastatin 20 mg tablet 20 mg PO DAILY promethazine-DM 6.25-15 mg/5 mL syrup 5 ml PO Q6H PRN (Reason: cough) Qty: 240 0RF amlodipine 5 mg Tablet 5 mg PO DAILY albuterol sulfate 90 mcg/actuation HFA aerosol inhaler 2 inh inhalation Q4H PRN (Reason: shortness of breath or wheezing) Qty: 6.7 0RF benzonatate 100 mg capsule 100 mg PO TID PRN (Reason: cough) Qty: 14 0RF Discharge Orders: Discharge ED (Routine); Ordered 09/10/23 Ordered By: Milton Boyd Referrals: Marilyn Kinsey MD [Primary Care Provider] - Discharge Diet: Clear Liquid Patient Instructions: Colitis (ED), Opioid Safety, Pain Management Activity Restrictions/Additional Instructions: Thank you for choosing [facility] for your healthcare needs today. Please realize this is an emergency room and that we are providing you with a medical screening exam and this may not be complete and all inclusive of all the testing and or work up that you may need to determine your ailment or severity of your illness. It is very important that you follow up as instructed or that you return to the Emergency Department should you have concerns or if your condition changes or worsens in any way. You are seen today in the ER for diarrhea and abdominal pain. Recommend clear liquid diet for next 24 to 48 hours then advance as tolerated. On the CT there was signs of colitis start the oral antibiotics this evening 1 pill twice daily for 10 days Coding Level of Care Code ED Fiberline Supervisor for Sofia Tompkins
[2023-09-10 09:29] LABS: Basophils % 0.2 %; Hematocrit 33.9 % (36-47); Lymphocytes # 0.7 10^3/uL (0.8-4.8); Lymphocytes % 3.5 %; Mean Corpuscular Hemoglobin 26.3 pg (27-33); Mean Corpuscular Volume 84.8 fl (85-98); Mean Platelet Volume 9.5 fL (7.4-10.4); Monocytes # 1.6 10^3/uL (0.2-0.9); Monocytes % 8.6 %; Neutrophils # 16.32 10^3/uL (1.8-7.7); Neutrophils % 87.3 %; Nucleated Red Blood Cells % 0 %; Platelet Count 405 10^3/cmm (157-399); Red Cell Distribution Width 14.1 % (12.1-15.1); White Blood Count 18.69 10^3/uL (3.29-11.43)
[2023-09-10 09:30] LABS: Alanine Aminotransferase 16 U/L (0-33); Alkaline Phosphatase 89 U/L (35-105); Anion Gap 17.9 (5-19); Aspartate Amino Transferase 19 U/L (0-32); Blood Urea Nitrogen 12 mg/dL (6-20); Calcium 8.9 mg/dL (8.5-10.5); Carbon Dioxide 21 mmol/L (22-29); Chloride 102 mmol/L (98-107); Globulin 2.8 g/dL (1.3-4.6); Glomerular Filtration Rate 74.7 mL/min (90-130); Glucose 119 mg/dL (65-115); Lipase 17 U/L (13-60); Osmolality Calculated 285 mOsm/kg (285-295); Potassium 3.9 mmol/L (3.5-5.1); Sodium 137 mmol/L (136-145); Total Bilirubin 0.3 mg/dL (0.15-1.2); Total Protein 6.8 g/dL (6.6-8.7)
== END 2023-09-10 13:57 | disposition home or self-care (01) ==
PROVIDERS: Emergency Provider Family Medicine; PCP Internal Medicine
DX: K52.9 Noninfective gastroenteritis and colitis, unspecified (principal)
CPT/HCPCS: 74176; 80053; 83690; 85025; 93005; 99285

== ENCOUNTER 2024-05-04 09:08 | Outpatient (CLI) | payer MEDICARE, MEDICAID, SELFPAY ==
[2024-05-04 10:15] LABS: Free T4 Free Thyroxine 1.06 ng/dL (0.82-1.77); Thyroid Stimulating Hormone 2.18 uIU/mL (0.27-4.20)
== END 2024-05-04 09:09 | disposition home or self-care (01) ==
LOC: LAB 09:15
PROVIDERS: PCP Internal Medicine; Visit Provider Specialist
DX: E07.9 Disorder of thyroid, unspecified (principal)
CPT/HCPCS: 36415; 84439; 84443

== ENCOUNTER 2024-05-10 07:41 | Emergency (ER) | payer MEDICARE, MEDICAID, SELFPAY ==
[2024-05-10 07:42] VITALS: BP 141/81; PULSE 69; TEMP 36.7; O2SAT 97; BMI 29.8
--- NOTE | 2024-05-10 07:58 | ED_ITS ---
HPI - Headache 2 General: Chief Complaint: Headache Stated Complaint: N/V Time Seen by Provider: 05/10/24 07:42 Source: patient and EMS Mode of arrival: EMS Limitations: no limitations History of Present Illness: 54-year-old female states over last 2 da ys she been having nausea vomiting states she has also been having some abdominal cramping. States the cramping is diffuse in nature rates today 4 out of 10. She had a mild headache as well she states with her vomiting. Denies any severe headaches. Denies any worse improving factors. Associated symptoms: Reports nausea and vomiting; Deny chest pain, fever(s) or rash Review of Systems 2 Const: Denies: fever(s), chills, body aches or change in appetite ENMT: Denies: throat pain or dental pain Card: Denies: chest pain Resp: Denies: dyspnea GI: Reports: abdominal pain, nausea and vomiting; Denies: diarrhea : Denies: dysuria Musc: Denies: neck pain or back pain Skin/Breast: Denies: rash Neuro: Reports: headache(s) PFSH ED 2 PFSH: Medical History (Updated 05/10/24 @ 08:52 by Lidya Duong MD) Anxiety Depression Asthma Surgical History History of tubal ligation History of cholecystectomy History of hysterectomy Family History Other Heart disease Denies family history of Bleeding disorder Social History Smoking and tobacco/nicotine status: never used tobacco/nicotine Second hand smoke exposure: Yes Alcohol intake: never Substance/Drug Use: never Adopted: No Caregiver/support person: No Lives independently: Yes Household members: none Housing: House Marital status: Single Number of children: 0 service: No Current occupational status: employed Pets and animals: Yes Do you think of yourself as: Straight/Heterosexual Current gender identity: Female Physical Exam 2 Const: COMMON NORMALS: no acute distress, patient oriented x3 and healthy appearing HENMT: COMMON NORMALS: normocephalic and atraumatic HEAD & SCALP: n ormocephalic and atraumatic Eye: COMMON NORMALS: Equal, round and reactive pupils present and EOMs intact bilaterally PUPIL: Yes Equal, round and reactive pupils present Neck/C-Spine: COMMON NORMALS: full ROM and supple Chest: COMMONS NORMALS: normal inspection of the chest Resp: COMMON NORMALS: normal respiratory effort, No retractions, No use of accessory muscles and clear to auscultation bilaterally AUSCULTATION: clear to auscultation bilaterally Cardio: COMMON NORMALS: regular rate, regular rhythm and No murmurs present (Cardio) RATE: regular rate RHYTHM: regular rhythm GI: COMMON NORMALS: Normal to inspection, nondistended, normoactive bowel sounds present, Soft to palpation, non-tender and no masses PALPATION: Yes Soft to palpation Extremity: COMMON NORMALS: normal to inspection and full ROM Neuro: COMMON NORMALS: patient oriented x3, moves all extremities and no focal motor deficits Psych: COMMON NORMALS: mental status grossly normal, Normal thought process present and cooperative THOUGHT PROCESS: Normal thought process present Skin: COMMON NORMALS: no rashes or lesions noted and no wounds GENERAL SKIN EXAM: no rashes or lesions noted Course 2 Vital Signs: Vital signs: Vital Signs Temperature 98.0 F 05/10/24 07:42 Pulse Rate 69 05/10/24 07:42 Blood Pressure 141/81 05/10/24 07:42 Pulse Oximetry 97 05/10/24 07:42 MDM - Headache Medical Decision Making Patient presents here with vomiting she also has a headache she feels much improved here blood work here is all normal she has no signs of subarachnoid hemorrhage or meningitis abdominal exam is benign she stable for discharge follow-up PCP return if worsening. Medical Records I reviewed the patient's medical records. Lab Data I reviewed the patient's lab results. 05/10/24 07:55 05/10/24 07:55 Laboratory Results WBC 6.96 10^3/uL (3.29-11.43) 05/10/24 07:55 RBC 5.03 10^6/uL (3.85-5.65) 05/10/24 07:55 Hgb 13.70 g/dL (11.27-16.99) 05/10/24 07:55 Hct 43.1 % (36-47) 05/10/24 07:55 MCV 85.7 fl (85-98) 05/10/24 07:55 MCH 27.2 pg (27-33) 05/10/24 07:55 MCHC 31.8 g/dL (30-55) 05/10/24 07:55 RDW 13.8 % (12.1-15.1) 05/10/24 07:55 Plt Count 370 10^3/cmm (157-399) 05/10/24 07:55 MPV 8.9 fL (7.4-10.4) 05/10/24 07:55 Neut % (Auto) 65.0 % 05/10/24 07:55 Lymph % (Auto) 19.7 % 05/10/24 07:55 [place] % (Auto) 12.6 % 05/10/24 07:55 Eos % (Auto) 2.0 % 05/10/24 07:55 Baso % (Auto) 0.4 % 05/10/24 07:55 Neut # (Auto) 4.52 10^3/uL (1.8-7.7) 05/10/24 07:55 Lymph # (Auto) 1.4 10^3/uL (0.8-4.8) 05/10/24 07:55 [place] # (Auto) 0.9 10^3/uL (0.2-0.9) 05/10/24 07:55 Eos # (Auto) 0.1 10^3/uL (0.0-0.8) 05/10/24 07:55 Baso # (Auto) 0.0 10^3/uL (0.0-0.1) 05/10/24 07:55 Nucleated RBC % (auto) 0 % 05/10/24 07:55 Nucleated RBCs # 0.0 /100WBC 05/10/24 07:55 Sodium 138 mmol/L (136-145) 05/10/24 07:55 Potassium 4.1 mmol/L (3.5-5.1) 05/10/24 07:55 Chloride 103 mmol/L (98-107) 05/10/24 07:55 Carbon Dioxide 21 mmol/L (22-29) L 05/10/24 07:55 Anion Gap 18.1 (5-19) 05/10/24 07:55 BUN 19 mg/dL (6-20) 05/10/24 07:55 Creatinine 0.7 mg/dL (0.5-0.9) 05/10/24 07:55 GFR Calculation 86.9 mL/min (90-130) L 05/10/24 07:55 Glucose 106 mg/dL (65-115) 05/10/24 07:55 Calculated Osmolality 289 mOsm/kg (285-295) 05/10/24 07:55 Calcium 9.4 mg/dL (8.5-10.5) 05/10/24 07:55 Total Bilirubin 0.2 mg/dL (0.15-1.2) 05/10/24 07:55 AST 15 U/L (0-32) 05/10/24 07:55 ALT 13 U/L (0-33) 05/10/24 07:55 Alkaline Phosphatase 97 U/L (35-105) 05/10/24 07:55 Total Protein 8.2 g/dL (6.6-8.7) 05/10/24 07:55 Albumin 4.6 g/dL (3.5-5.2) 05/10/24 07:55 Globulin 3.6 g/dL (1.3-4.6) 05/10/24 07:55 Lipase 45 U/L (13-60) 05/10/24 07:55 Urine Color Yellow (Yellow) 05/10/24 08:30 Urine Appearance Clear (CLEAR) 05/10/24 08:30 Urine pH 7 (5-7) 05/10/24 08:30 Ur Specific [place] 1.010 (1.005-1.030) 05/10/24 08:30 Urine Protein Neg (Negative) 05/10/24 08:30 Urine Glucose (UA) Norm (Normal) 05/10/24 08:30 Urine Ketones Negative (Negative) 05/10/24 08:30 Urine Blood Neg (Negative) 05/10/24 08:30 Urine Nitrate Negative (Negative) 05/10/24 08:30 Urine Bilirubin Neg (Negative) 05/10/24 08:30 Urine Urobilinogen Norm mg/dL (Negative) 05/10/24 08:30 Ur Leukocyte Esterase Negative (Negative) 05/10/24 08:30 No radiology studies performed this visit Discharge Plan Discharge Patient Disposition: Home Clinical Impression: Headache, Vomiting Condition: Stable Prescriptions: New ondansetron 4 mg tablet,disintegrating 4 mg PO Q6H PRN (Reason: nausea and vomiting) Qty: 14 0RF No Action venlafaxine [Effexor XR] 150 mg capsule,extended release 24hr 150 mg PO DAILY montelukast [Singulair] 10 mg tablet 10 mg PO DAILY topiramate [Topamax] 25 mg tablet 25 mg PO DAILY pantoprazole 40 mg tablet,delayed release (DR/EC) 40 mg PO DAILY ferrous gluconate 324 mg (37.5 mg iron) tablet 324 mg PO DAILY fluticasone propionate 50 mcg/actuation spray,suspension 2 spray intranasal DAILY Rx Instructions: administer into each nostril cetirizine 10 mg tablet 10 mg PO DAILY PRN (Reason: Allergy Symptoms) lovastatin 20 mg tablet 20 mg PO DAILY amlodipine 5 mg Tablet 5 mg PO DAILY albuterol sulfate 90 mcg/actuation HFA aerosol inhaler 2 inh inhalation Q4H PRN (Reason: shortness of breath or wheezing) Qty: 6.7 0RF Discharge Orders: Discharge ED (Routine); Ordered 05/10/24 Ordered By: Lidya Duong Referrals: Marilyn Kinsey MD [Primary Care Provider] - 4-7 days Discharge Diet: Advance as tolerated Discharge Activity: Resume usual activity Patient Instructions: Acute Nausea and Vomiting (ED), General Headache (ED) Coding Level of Care Code ED Family Resource Coordinator for Sofia Tompkins
[2024-05-10 08:01] LABS: Basophils % 0.4 %; Eosinophils # 0.1 10^3/uL (0.0-0.8); Hematocrit 43.1 % (36-47); Lymphocytes # 1.4 10^3/uL (0.8-4.8); Lymphocytes % 19.7 %; Mean Corpuscular HGB Conc 31.8 g/dL (30-55); Mean Corpuscular Hemoglobin 27.2 pg (27-33); Mean Corpuscular Volume 85.7 fl (85-98); Mean Platelet Volume 8.9 fL (7.4-10.4); Monocytes # 0.9 10^3/uL (0.2-0.9); Monocytes % 12.6 %; Neutrophils # 4.52 10^3/uL (1.8-7.7); Nucleated Red Blood Cells % 0 %; Platelet Count 370 10^3/cmm (157-399); Red Blood Count 5.03 10^6/uL (3.85-5.65); Red Cell Distribution Width 13.8 % (12.1-15.1); White Blood Count 6.96 10^3/uL (3.29-11.43)
[2024-05-10] MEDS: metoclopramide 5 mg/mL SDV 2 mL 10 MG IVP (08:15)
[2024-05-10] MEDS: diphenhydrAMINE 50 mg/mL SDV 1mL IVP (08:15)
[2024-05-10] MEDS: sodium chloride 0.9% 1,000 ML 999 ML IV (08:15)
[2024-05-10 08:22] LABS: Alanine Aminotransferase 13 U/L (0-33); Albumin Level 4.6 g/dL (3.5-5.2); Alkaline Phosphatase 97 U/L (35-105); Anion Gap 18.1 (5-19); Aspartate Amino Transferase 15 U/L (0-32); Blood Urea Nitrogen 19 mg/dL (6-20); Calcium 9.4 mg/dL (8.5-10.5); Carbon Dioxide 21 mmol/L (22-29); Chloride 103 mmol/L (98-107); Globulin 3.6 g/dL (1.3-4.6); Glomerular Filtration Rate 86.9 mL/min (90-130); Glucose 106 mg/dL (65-115); Lipase 45 U/L (13-60); Osmolality Calculated 289 mOsm/kg (285-295); Potassium 4.1 mmol/L (3.5-5.1); Sodium 138 mmol/L (136-145); Total Bilirubin 0.2 mg/dL (0.15-1.2); Total Protein 8.2 g/dL (6.6-8.7)
[2024-05-10 08:38] LABS: Add Urine Microscopic? NO; Charge for UA Resulting for Rev
[2024-05-10 08:45] LABS: Urine Color Yellow (Yellow)
[2024-05-10 08:46] LABS: Bilirubin Urine Neg (Negative); Blood Urine Neg (Negative); Glucose Urine UA Norm (Normal); Ketones Urine Negative (Negative); Leukocyte Esterase Urine Negative (Negative); Nitrate Urine Negative (Negative); Protein Urine Neg (Negative); Urine Appearance Clear (CLEAR); Urobilinogen Urine Norm (Negative); pH Urine 7 (5-7)
== END 2024-05-10 09:33 | disposition home or self-care (01) ==
PROVIDERS: Emergency Provider Emergency Medicine; PCP Internal Medicine
DX: R51.9 Headache, unspecified (principal); R11.11 Vomiting without nausea; Z77.22 Contact with and (suspected) exposure to environmental tobacco smoke (acute) (chronic)
CPT/HCPCS: 36415; 80053; 81003; 83690; 85025; 96374; 96375; 99284; J1200; J2765; J7030

== ENCOUNTER → 2024-08-24 09:56 | Outpatient (BNVA) | payer MEDICARE, MEDICAID, SELFPAY | PROVIDERS: PCP Internal Medicine; Visit Provider Clinical Nurse Specialist Adult Health | DX: M23.91 Unspecified internal derangement of right knee (principal) | CPT/HCPCS: 73562 ==

== ENCOUNTER 2024-09-21 11:00 | Outpatient (CLI) | payer MEDICARE, MEDICAID, SELFPAY ==
--- NOTE | 2024-09-21 11:03 | MR_ITS ---
WS: [id number] MRI RIGHT KNEE NONCONTRAST TECHNIQUE: Axial PD, coronal PD fat sat, coronal PD, sagittal PD, and sagittal PD fat-sat images obta ined. CLINICAL INFORMATION: RIGHT KNEE JOINT PAIN COMPARISON: None. FINDINGS: Distal quadriceps and patella tendons are intact. 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 Advanced degenerative changes of the patellofemoral articulation with grade IV chondromalac ia. Subchondral edema in the patella. Moderate suprapatellar effusion. Medial and lateral patellar re tinaculum appear intact. Small lobulated popliteal cyst measuring 1.2 x 3.9 cm AP by craniocaudal. Chronic thinning of the ACL which appears intact. PCL appears intact. Moderate to advanced degenerati ve narrowing medial and lateral joint compartments with grade 3-4 chondromalacia. Subchondral edema i n the medial femoral condyle. Chronic thinning of the medial and lateral meniscus. Peripheral extrusion of the lateral meniscus. C omplex tear involving the medial meniscus blunting of the posterior horn with tear at the meniscal ro ot. Medial and lateral collateral ligaments are intact. MR/MR knee RT wo con* [id number] IMPRESSION: 1. High-grade radial type tear involving the posterior horn medial meniscus wi th blunting of the meniscal root. 2. Chronic peripheral extrusion of the lateral meniscus. 3. Degenerative changes advanced for patient this age. 4. 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 5. Moderate suprasellar effusion. 6. Lobulated popliteal cyst described above. [place]bridge grading: grade IV: full-thickness cartilage loss with underlying bone reactive changes
== END 2024-09-21 11:01 | disposition home or self-care (01) ==
PROVIDERS: PCP Internal Medicine; Visit Provider Nurse Practitioner Family
DX: M23.221 Derangement of posterior horn of medial meniscus due to old tear or injury, right knee (principal); M22.41 Chondromalacia patellae, right knee; M25.461 Effusion, right knee; M71.21 Synovial cyst of popliteal space [Baker], right knee
CPT/HCPCS: 73721

== ENCOUNTER → 2024-11-02 08:28 | Outpatient (BNVA) | payer MEDICARE, MEDICAID, SELFPAY | PROVIDERS: PCP Internal Medicine; Visit Provider Specialist | DX: M23.91 Unspecified internal derangement of right knee; M17.11 Unilateral primary osteoarthritis, right knee | CPT/HCPCS: 20610; 73560; 73565; 99204; J1100; J2795; J3301 ==

== ENCOUNTER → 2025-05-07 09:22 | Outpatient (BNVA) | payer OTHER, MEDICAID, SELFPAY | PROVIDERS: PCP Internal Medicine; Visit Provider Specialist | DX: M17.11 Unilateral primary osteoarthritis, right knee (principal); M23.91 Unspecified internal derangement of right knee | CPT/HCPCS: 20610; J1100; J2795; J3301; J9999 ==

== ENCOUNTER → 2025-07-26 10:49 | Outpatient (BNVA) | payer OTHER, MEDICAID, SELFPAY | PROVIDERS: PCP Internal Medicine; Visit Provider Specialist | DX: M23.91 Unspecified internal derangement of right knee (principal); S83.207A Unspecified tear of unspecified meniscus, current injury, left knee, initial encounter; X58.XXXA Exposure to other specified factors, initial encounter | CPT/HCPCS: 73560; 73565 ==

== ENCOUNTER 2025-07-26 11:51 | Outpatient (CLI) | payer OTHER, MEDICAID, SELFPAY | END 2025-07-26 11:52 | disposition home or self-care (01) | LOC: SPT 11:51 | PROVIDERS: PCP Internal Medicine; Visit Provider Specialist | DX: Z46.89 Encounter for fitting and adjustment of other specified devices (principal); M25.562 Pain in left knee | CPT/HCPCS: 99214; L1812 ==

== ENCOUNTER 2025-08-16 10:07 | Outpatient (CLI) | payer OTHER, MEDICAID, SELFPAY ==
--- NOTE | 2025-08-16 10:15 | MR_ITS ---
WS: [id number] MRI LEFT KNEE HISTORY: knee pain COMPARISON: 07/26/2025 Anterior cruciate ligament: Intact. Posterior cruciate ligament: Intact. Medial collateral ligament: Intact. Posterior lateral corner structures: Intact. Medial menisci: Intact. Normal signal, size and shape. Lateral meniscus: Intact. Normal signal, size and shape. Extensor mechanism: Distal quadriceps tendon and patellar tendons are intact. Fluid and soft tissue: Moderate to large suprapatellar joint effusion. There is edema surrounding the knee. There is a small Palma's cyst. There is fluid adjacent to the Palma's cyst and extending along the medial head of the gastrocnemius. Osseous and articular structures: Patellofemoral compartment: Moderate lateral subluxation of the patella. Mild diffuse chondromalacia. Patellar retinaculum intact. No marrow edema. Medial compartment: Moderate narrowing of the medial compartment. Small marginal osteophytes. Near complete loss of cartilage and chondromalacia. Marrow edema in the medial femoral condyle. Lateral compartment: Moderate narrowing lateral compartment. Focal full- thickness cartilage defect along the weightbearing surface of femoral condyle. No underlying marrow edema. Otherwise mild fissuring of the cartilage. MR/MR knee LT wo con* [id number] IMPRESSION: 1. Moderate to large suprapatellar joint effusion. 2. Small Palma's cyst. Adjacent to the Palma's cyst is edema extending along t he medial head of the gastrocnemius consistent with a ruptured Palma's cyst. 3. Moderate lateral subluxation of the patella. 4. Mild diffuse patellar chondromalacia. 5. Moderate narrowing of the medial and lateral compartments with chondromalac ia as above. 6. Small amount of marrow edema in the medial femoral condyle.
== END 2025-08-16 10:08 | disposition home or self-care (01) ==
LOC: RAD 10:08
PROVIDERS: PCP Internal Medicine; Visit Provider Specialist
DX: M25.462 Effusion, left knee (principal); M71.22 Synovial cyst of popliteal space [Baker], left knee; S83.012A Lateral subluxation of left patella, initial encounter; X58.XXXA Exposure to other specified factors, initial encounter; M94.262 Chondromalacia, left knee; M25.762 Osteophyte, left knee; M94.8X8 Other specified disorders of cartilage, other site
CPT/HCPCS: 73721

== ENCOUNTER 2025-09-09 09:44 | Emergency (ER) | payer MEDICARE, MEDICAID, SELFPAY ==
[2025-09-09 09:45] VITALS: BP 137/76; PULSE 87; RESP 18; TEMP 36.8; O2SAT 98; BMI 30.7
--- NOTE | 2025-09-09 09:48 | XRR_ITS ---
PROCEDURE INFORMATION: Exam: XR Chest Exam date and time: 09/09/2025 10:04 AM Age: 55 years old Clinical indication: Shortness of breath; Additional info: SOB; Anxiety TECHNIQUE: Imaging protocol: Radiologic exam of the chest. Views: 1 view. COMPARISON: CR XR chest 2V* [id number] 06/03/2023 9:49 AM FINDINGS: Lungs: Pulmonary vessels are within normal limits. Bibasilar linear densities. Bilateral calcified granulomas. Pleural spaces: No pneumothorax. Heart/Mediastinum: Cardiomediastinal silhouette is within normal limits. Bones/joints: Unremarkable. XR/XR chest 1V portable [id number] IMPRESSION: 1. No acute pulmonary finding. 2. Bibasilar linear densities. Finding could represent scarring or atelectasis.
--- NOTE | 2025-09-09 09:54 | ECG_ITS ---
[facility] Test Date: 2025-09-09 Pat Name: Bertha Oneil Department: Room: Gender: Female Broadcast Technician: : 1970 Requested By: Lidya Duong Order Number: [id number] Cory MD: Clarita Diehl M.D. Measurements Intervals [place] Rate: 88 P: 51 MN: 176 QRS: -11 QRSD: 78 T: 35 QT: 348 QTc: 422 Interpretive Statements SINUS RHYTHM Compared to ECG 09/10/2023 07:56:49 T-wave abnormality no longer present Electronically Signed On 09-09-2025 17:23:44 GEAR INSPECTOR by Clarita Diehl M.D. [email or web address]
--- NOTE | 2025-09-09 09:54 | W.ED.SOB ---
HPI - SOB/Dyspnea General: Chief Complaint: Upper Respiratory Infection Stated Complaint: SOB x 1 week - anxiety Time Seen by Provider: 09/09/25 09:45 Source: patient and EMS Mode of arrival: EMS Limitations: no limitations History of Present Illness: HPI Narrative: 55-year-old female has a history of asthma states that she has been having increased cough shortness of breath over the last week. Patient states that she is home alone today for the holidays and also feeling very anxious due to that. She denies any fevers did receive breathing treatment and route does not require any oxygen she denies any worsening improving factors denies any chest pain Related Data Home Medications ?Medication ?Instructions ?Recorded ?Confirmed montelukast 10 mg tablet 10 mg PO DAILY 01/26/20 09/09/25 (Singulair) topiramate 25 mg tablet (Topamax) 25 mg PO DAILY 01/26/20 09/09/25 venlafaxine 150 mg 150 mg PO DAILY 01/26/20 09/09/25 capsule,extended release 24 hr (Effexor XR) cetirizine 10 mg tablet 10 mg PO DAILY PRN Allergy Symptoms 05/28/22 09/09/25 ferrous gluconate 324 mg (37.5 mg 324 mg PO DAILY 05/28/22 09/09/25 iron) tablet pantoprazole 40 mg tablet,delayed 40 mg PO DAILY 05/28/22 09/09/25 release amlodipine 5 mg tablet 5 mg PO DAILY 02/17/23 09/09/25 atorvastatin 20 mg tablet (Lipitor) 20 mg PO BEDTIME 09/09/25 09/09/25 fluticasone fur. 100 mcg-umeclid 1 ea inhalation DAILY 09/09/25 09/09/25 62.5 mcg-vilant 25 mcg inhalat.powder (Trelegy Ellipta) Previous Rx's ?Medication ?Instructions ?Recorded hinged knee brace, left #1 ea 07/26/25 cephalexin 500 mg capsule 500 mg PO TID 7 days #21 caps 09/09/25 prednisone 50 mg tablet 50 mg PO DAILY #5 tabs 09/09/25 Allergies Allergy/AdvReac Type Severity Reaction Status Date / Time aspirin Allergy Unknown Unknown Verified 09/09/25 09:55 doxycycline Allergy ALGY-Swell Verified 09/09/25 09:55 Lip/Tongue/Throat fluticasone (From Advair Allergy horseness Verified 09/09/25 09:55 Diskus) salmeterol (From Advair Allergy horseness Verified 09/09/25 09:55 Diskus) Sulfa (Sulfonamide Allergy MATTHEWY-Swell Verified 09/09/25 09:55 Antibiotics) Lip/Tongue/Throat Review of Systems Resp: Reports: dyspnea PFSH ED PFSH: Medical History (Updated 09/09/25 @ 11:03 by Lidya Duong MD) Anxiety Depression Asthma Surgical History History of tubal ligation History of cholecystectomy History of hysterectomy Family History Other Heart disease Denies family history of Bleeding disorder Social History Smoking and tobacco/nicotine status: never used tobacco/nicotine Second hand smoke exposure: Yes Alcohol intake: never Substance/Drug Use: never Adopted: No Caregiver/support person: No Lives independently: Yes Household members: none Housing: House Marital status: Single Number of children: 0 service: No Current occupational status: employed Pets and animals: Yes Do you think of yourself as: Straight/Heterosexual Current gender identity: Female Physical Exam Const: COMMON NORMALS: patient oriented x3 and healthy appearing HENMT: COMMON NORMALS: normocephalic and atraumatic HEAD & SCALP: normocephalic and atraumatic Neck/C-Spine: COMMON NORMALS: full ROM and supple Chest: COMMONS NORMALS: normal inspection of the chest and normal palpation of entire chest wall Resp: COMMON NORMALS: normal respiratory effort, No retractions, No use of accessory muscles and clear to auscultation bilaterally AUSCULTATION: clear to auscultation bilaterally Cardio: COMMON NORMALS: regular rate, regular rhythm and No murmurs present (Cardio) RATE: regular rate RHYTHM: regular rhythm Extremity: COMMON NORMALS: normal to inspection and full ROM Neuro: COMMON NORMALS: patient oriented x3, moves all extremities and no focal motor deficits Psych: COMMON NORMALS: mental status grossly normal, Normal thought process present and cooperative THOUGHT PROCESS: Normal thought process present Skin: COMMON NORMALS: no rashes or lesions noted and no wounds GENERAL SKIN EXAM: no rashes or lesions noted Course Vital Signs: Vital signs: Vital Signs Temperature 98.2 F 09/09/25 09:45 Pulse Rate 94 09/09/25 10:36 Respiratory Rate 16 09/09/25 10:36 Blood Pressure 135/71 09/09/25 10:36 Pulse Oximetry 91 09/09/25 10:36 Oxygen Delivery Me thod Room Air 09/09/25 10:02 MDM - SOB/Dyspnea Medical Decision Making Patient presents with cough congestion differential includes pneumonia, asthma exacerbation. Patient's been well-appearing here she feels much improved after breathing treatment and IV steroid. Did review her x-ray that showed no signs of pneumonia EKG here was interpreted by me showed normal sinus rhythm heart rate [address] elevation QRS 78 QTc 393. Patient likely has asthma exacerbation with the bronchitis. Will place her on 5 days of steroids along with Keflex I feel she is stable for discharge I did go over all this with her she is to follow-up her PCP and return if worsening she understands agrees to plan Medical Records I reviewed the patient's medical records. Lab Data I reviewed the patient's lab results. 09/09/25 10:15 09/09/25 10:15 Labs/Radiology: Radiology Impressions Chest X-Ray 09/09/25 09:48 IMPRESSION: 1. No acute pulmonary finding. 2. Bibasilar linear densities. Finding could represent scarring or atelectasis. Laboratory Results WBC 13.41 10^3/uL (3.29-11.43) H 09/09/25 10:15 RBC 3.93 10^6/uL (3.85-5.65) 09/09/25 10:15 Hgb 11.00 g/dL (11.27-16.99) L 09/09/25 10:15 Hct 33.4 % (36-47) L 09/09/25 10:15 MCV 85.0 fl (85-98) 09/09/25 10:15 MCH 28.0 pg (27-33) 09/09/25 10:15 MCHC 32.9 g/dL (30-55) 09/09/25 10:15 RDW 11.9 % (12.1-15.1) L 09/09/25 10:15 Plt Count 394 10^3/cmm (157-399) 09/09/25 10:15 MPV 9.0 fL (7.4-10.4) 09/09/25 10:15 Neut % (Auto) 70.0 % 09/09/25 10:15 Lymph % (Auto) 16.5 % 09/09/25 10:15 [place] % (Auto) 11.3 % 09/09/25 10:15 Eos % (Auto) 1.7 % 09/09/25 10:15 Baso % (Auto) 0.1 % 09/09/25 10:15 Neut # (Auto) 9.37 10^3/uL (1.8-7.7) H 09/09/25 10:15 Lymph # (Auto) 2.2 10^3/uL (0.8-4.8) 09/09/25 10:15 [place] # (Auto) 1.5 10^3/uL (0.2-0.9) H 09/09/25 10:15 Eos # (Auto) 0.2 10^3/uL (0.0-0.8) 09/09/25 10:15 Baso # (Auto) 0.0 10^3/uL (0.0-0.1) 09/09/25 10:15 Nucleated RBC % (auto) 0 % 09/09/25 10:15 Nucleated RBCs # 0.0 /100WBC 09/09/25 10:15 Sodium 142 mmol/L (136-145) 09/09/25 10:15 Chloride 107 mmol/L (98-107) 09/09/25 10:15 Anion Gap 17.2 (5-19) 09/09/25 10:15 BUN 13 mg/dL (6-20) 09/09/25 10:15 Creatinine 0.8 mg/dL (0.5-0.9) 09/09/25 10:15 Calcium 8.9 mg/dL (8.5-10.5) 09/09/25 10:15 Total Bilirubin 0.3 mg/dL (0.15-1.2) 09/09/25 10:15 AST 14 U/L (0-32) 09/09/25 10:15 ALT 16 U/L (0-33) 09/09/25 10:15 Alkaline Phosphatase 100 U/L (35-105) 09/09/25 10:15 NT-Pro-B Natriuret Pep 104 pg/mL (0-125) 09/09/25 10:15 Total Protein 6.9 g/dL (6.6-8.7) 09/09/25 10:15 Albumin 4.1 g/dL (3.5-5.2) 09/09/25 10:15 Globulin 2.8 g/dL (1.3-4.6) 09/09/25 10:15 Influenza A (PCR) Negative (Negative) 09/09/25 10:00 Influenza Type B (PCR) Negative (Negative) 09/09/25 10:00 RSV (PCR) Negative (Negative) 09/09/25 10:00 SARS-CoV-2 (PCR) Negative (Negative) 09/09/25 10:00 All radiology interpretation(s) finalized by discharge EKG Data EKG 1: I personally reviewed and interpreted this EKG as follows: EKG Interpretation Date: 09/09/25 EKG interpretation time: 09:54 Interpretation: nsr hr [address] elevation qrs 78 qtc 393 Discharge Plan Discharge Patient Disposition: Home Clinical Impression: Bronchitis Condition: Stable Prescriptions: New cephalexin 500 mg capsule 500 mg PO TID 7 Days Qty: 21 0RF prednisone 50 mg tablet 50 mg PO DAILY Qty: 5 0RF No Action venlafaxine [Effexor XR] 150 mg capsule,extended release 24hr 150 mg PO DAILY montelukast [Singulair] 10 mg tablet 10 mg PO DAILY topiramate [Topamax] 25 mg tablet 25 mg PO DAILY pantoprazole 40 mg tablet,delayed release (DR/EC) 40 mg PO DAILY ferrous gluconate 324 mg (37.5 mg iron) tablet 324 mg PO DAILY cetirizine 10 mg tablet 10 mg PO DAILY PRN (Reason: Allergy Symptoms) (DME) hinged knee brace, left See Rx Instructions .Route .MEDSUPPLY Qty: 1 0RF Rx Instructions: As directed atorvastatin [Lipitor] 20 mg tablet 20 mg PO BEDTIME Trelegy Ellipta 100-62.5-25 mcg blister with device 1 ea INHALATION DAILY amlodipine 5 mg Tablet 5 mg PO DAILY Discharge Orders: Discharge ED (Routine); Ordered 09/09/25 Ordered By: Lidya Duong Referrals: Marilyn Kinsey MD [Primary Care Provider, Internal Medicine] - 4-7 days Discharge Diet: Advance as tolerated Discharge Activity: Resume usual activity Patient Instructions: Bronchitis (Acute) - Adult Print Language: Iranian Coding Level of Care Code 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
[2025-09-09] MEDS: LORazepam 2 mg/mL INJ 1 mL 1 MG IVP (10:01)
[2025-09-09 10:02] VITALS: PULSE 88; RESP 18; O2SAT 96
[2025-09-09] MEDS: methylPREDNISolone sod succ 125 mg/2 mL INJ IV (10:02)
[2025-09-09 10:05] VITALS: PULSE 86
[2025-09-09 10:11] VITALS: BP 123/93; PULSE 92; RESP 24; O2SAT 97
[2025-09-09 10:18] LABS: Hematocrit 33.4 % (36-47); Hemoglobin 11.00 g/dL (11.27-16.99); Mean Corpuscular HGB Conc 32.9 g/dL (30-55); Mean Corpuscular Hemoglobin 28.0 pg (27-33); Mean Corpuscular Volume 85.0 fl (85-98); Nucleated Red Blood Cells % 0 %; Platelet Count 394 10^3/cmm (157-399); Red Blood Count 3.93 10^6/uL (3.85-5.65); White Blood Count 13.41 10^3/uL (3.29-11.43)
[2025-09-09 10:36] VITALS: BP 135/71; PULSE 94; RESP 16; O2SAT 91
[2025-09-09 10:50] LABS: Respiratory Syncytial Virus Ce NEGATIVE (Negative); SARS-CoV-2 PCR NEGATIVE (Negative)
[2025-09-09 11:00] LABS: Alanine Aminotransferase 16 U/L (0-33); Albumin Level 4.1 g/dL (3.5-5.2); Alkaline Phosphatase 100 U/L (35-105); Anion Gap 17.2 (5-19); Aspartate Amino Transferase 14 U/L (0-32); Blood Urea Nitrogen 13 mg/dL (6-20); Calcium 8.9 mg/dL (8.5-10.5); Carbon Dioxide 21 mmol/L (22-29); Chloride 107 mmol/L (98-107); Globulin 2.8 g/dL (1.3-4.6); Glucose 141 mg/dL (65-115); NT Pro B Type Natriuretic Pept 104 pg/mL (0-125); Osmolality Calculated 296 mOsm/kg (285-295); Potassium 3.2 mmol/L (3.5-5.1); Sodium 142 mmol/L (136-145); Total Protein 6.9 g/dL (6.6-8.7)
[2025-09-09 11:20] VITALS: BP 123/70; PULSE 95; RESP 22; O2SAT 91
== END 2025-09-09 11:21 | disposition home or self-care (01) ==
PROVIDERS: Emergency Provider Emergency Medicine; PCP Internal Medicine
DX: J40 Bronchitis, not specified as acute or chronic (principal); Z11.52 Encounter for screening for COVID-19
CPT/HCPCS: 36415; 71045; 80053; 83880; 85025; 87637; 93005; 94640; 96374; 96375; 99285; J2060; J2919; J7613; J9999

== ENCOUNTER → 2025-09-13 12:01 | Outpatient (BNVA) | payer MEDICARE, MEDICAID, SELFPAY | PROVIDERS: PCP Internal Medicine; Visit Provider Specialist | DX: M17.12 Unilateral primary osteoarthritis, left knee (principal) | CPT/HCPCS: 99214 ==

== ENCOUNTER 2025-09-17 14:37 | Emergency (ER) | payer MEDICARE, MEDICAID, SELFPAY ==
[2025-09-17 14:38] VITALS: PULSE 83; RESP 20; TEMP 36.9; O2SAT 100; BMI 32.1
--- NOTE | 2025-09-17 15:03 | ED_ITS ---
HPI - Anxiety General: Chief Complaint: Anxiety Stated Complaint: anxiety Time Seen by Provider: 09/17/25 14:42 Source: patient Mode of arrival: EMS Limitations: no limitations History of Present Illness: Patient 55-year-old female presents to ED today via EMS following a panic attack. Patient states she has increased anxiety at this time a year due to the holidays and being alone. She states she had a panic attack around and had another panic attack today. Patient states she takes venlafaxine for depression and anxiety prescribed to her by her PCP Dr. Kinsey. Patient arrived via EMS. They were able to get the patient to perform meditative breathing which helped her through her panic attack. They did administer 4 mg of Zofran prior to arrival. During my initial examination patient tells me that her panic attack has resolved and she is no longer having any physical symptoms. MD complaint: anxiety Onset (ago): hour(s) Symptoms: dyspnea, palpitations and sense of impending doom Severity: moderate Quality: intermittent (now resolved) Place: home History of similar episodes: Yes Provoking factors: emotional stress Exacerbating factors: thinking about event Associated symptoms: Reports no associated symptoms; Deny chest pain, headache(s), nausea, palpitations, syncope or vomiting Related Data Home Medications ?Medication ?Instructions ?Recorded ?Confirmed montelukast 10 mg tablet 10 mg PO DAILY 01/26/2012/08 (Singulair) topiramate 25 mg tablet (Topamax) 25 mg PO DAILY 01/2509/14/25 venlafaxine 150 mg 150 mg PO DAILY 01/26/2012/08 capsule,extended release 24 hr (Effexor XR) cetirizine 10 mg tablet 10 mg PO DAILY PRN Allergy S ymptoms 05/28/22 09/14/25 ferrous gluconate 324 mg (37.5 mg 324 mg PO DAILY 05/1409/14/25 iron) tablet pantoprazole 40 mg tablet,delayed 40 mg PO DAILY 05/2809/14/25 release amlodipine 5 mg tablet 5 mg PO DAILY 02/17/2309/14 atorvastatin 20 mg tablet (Lipitor) 20 mg PO BEDTIME 1 11/09/24 09/14/25 fluticasone fur. 100 mcg-umeclid 1 ea inhalation DAILY 09/09/25 09/14/25 62.5 mcg-vilant 25 mcg inhalat.powder (Trelegy Ellipta) Previous Rx's ?Medication ?Instructions ?Recorded hinged knee brace, left #1 ea 07/26/25 benzonatate 100 mg capsule 100 mg PO TID cough #45 cap s 09/14/25 levofloxacin 750 mg tablet 750 mg PO DAILY 7 days #7 t abs 09/14/25 hydroxyzine pamoate 25 mg capsule 25 - 50 mg (1 - 2 x 25 mg) PO Q8H 09/17/25 PRN anxiety #30 caps Allergies Allergy/AdvReac Type Severity Reaction Status Date / Time aspirin Allergy Unknown Unknown Verified 09/14/25 10:09 doxycycline Allergy ALGY-Swell Verified 09/14/25 10:09 Lip/Tongue/Throat fluticasone (From Advair Allergy horseness Verified 09/14/25 10:09 Diskus) salmeterol (From Advair Allergy horseness Verified 09/14/25 10:09 Diskus) Sulfa (Sulfonamide Allergy ALGY-Swell Verified 09/14/25 10:09 Antibiotics) Lip/Tongue/Throat Review of Systems Card: Denies: chest pain, palpitations, irregular heart rhythm, edema, lightheadedness, syncope or pre-syncope Resp: Denies: dyspnea GI: Denies: nausea or vomiting Neuro: Denies: headache(s) or dizziness [facility] ED PFSH: Medical History Anxiety Depression Asthma Surgical History History of tubal ligation History of cholecystectomy History of hysterectomy Family History Other Heart disease Denies family history of Bleeding disorder Social History Smoking and tobacco/nicotine status: never used tobacco/nicotine Second hand smoke exposure: Yes Alcohol intake: never Substance/Drug Use: never Adopted: No Caregiver/support person: No Lives independently: Yes Household members: none Housing: House Marital status: Single Number of children: 0 service: No Current occupational status: employed Pets and animals: Yes Do you think of yourself as: Straight/Heterosexual Current gender identity: Female Physical Exam Const: COMMON NORMALS: no acute distress, average body habitus, patient oriented x3, no limitations, healthy appearing, alert and well nourished GENERAL APPEARANCE: cooperative ORIENTATION/CONSCIOUSNESS: Yes awake, Yes oriented to person, Yes oriented to place and Yes oriented to time HENMT: COMMON NORMALS: normocephalic and atraumatic HEAD & SCALP: normal to inspection, normocephalic and atraumatic Neck/C-Spine: COMMON NORMALS: full ROM, no lymphadenopathy, supple and no meningeal signs Chest: COMMONS NORMALS: normal inspection of the chest Resp: COMMON NORMALS: normal respiratory effort and clear to auscultation bilaterally AUSCULTATION: clear to auscultation bilaterally Cardio: COMMON NORMALS: regular rate and regular rhythm RATE: regular rate RHYTHM: regular rhythm Extremity: COMMON NORMALS: normal to inspection, capillary refill normal, no clubbing, cyanosis or edema, no calf tenderness and no pedal edema GENERAL: Yes normal exam except as noted Neuro: TODD COMA SCALE: document GCS findings Todd coma scale eye opening: Spontaneous Todd coma scale verbal response: Orientated [place] coma scale motor response: Obey commands [place] coma scale total score: 15 COMMON NORMALS: patient oriented x3, moves all extremities, no focal motor deficits, no sensory deficits noted and gait normal SENSORIUM/ORIENTATION: Yes alert, Yes oriented to person, Yes oriented to place and Yes oriented to time MENINGEAL SIGNS: Yes no meningeal signs Skin: COMMON NORMALS: no rashes or lesions noted GENERAL SKIN EXAM: no rashes or lesions noted Course Vital Signs: Vital signs: Vital Signs Temperature 98.4 F 09/17/25 14:38 Pulse Rate 83 09/17/25 14:38 Respiratory Rate 20 H 09/17/25 14:38 Pulse Oximetry 100 09/17/25 14:38 Oxygen Delivery Me thod Room Air 09/17/25 14:38 MDM - Anxiety Medical Decision Making Panic attack is resolved before my initial examination with patient. She has no physical complaints at this time. Vital signs are stable. She would like something to help for further panic attacks. Will prescribe her Vistaril. Recommend she follow-up with primary care. Return to ED precautions discussed. Differential Diagnosis Likely hyperventilation, panic disorder and acute anxiety Medical Records I reviewed the patient's medical records. No radiology studies performed this visit Discharge Plan Discharge Patient Disposition: Home Clinical Impression: Acute anxiety Condition: Stable Prescriptions: New hydroxyzine pamoate 25 mg capsule 25 - 50 mg PO Q8H PRN (Reason: anxiety) Qty: 30 0RF No Action venlafaxine [Effexor XR] 150 mg capsule,extended release 24hr 150 mg PO DAILY montelukast [Singulair] 10 mg tablet 10 mg PO DAILY topiramate [Topamax] 25 mg tablet 25 mg PO DAILY pantoprazole 40 mg tablet,delayed release (DR/EC) 40 mg PO DAILY ferrous gluconate 324 mg (37.5 mg iron) tablet 324 mg PO DAILY cetirizine 10 mg tablet 10 mg PO DAILY PRN (Reason: Allergy Symptoms) (DME) hinged knee brace, left See Rx Instructions .Route .MEDSUPPLY Qty: 1 0RF Rx Instructions: As directed benzonatate 100 mg capsule 100 mg PO TID Qty: 45 0RF levofloxacin 750 mg tablet 750 mg PO DAILY 7 Days Qty: 7 0RF atorvastatin [Lipitor] 20 mg tablet 20 mg PO BEDTIME Trelegy Ellipta 100-62.5-25 mcg blister with device 1 ea INHALATION DAILY amlodipine 5 mg Tablet 5 mg PO DAILY Discharge Orders: Discharge ED (Routine); Ordered 09/17/25 Ordered By: Charlene Escalante Referrals: Marilyn Kinsey MD [Primary Care Provider, Internal Medicine] Patient Instructions: Anxiety (ED), Panic Attack (ED), Patient Portal & [facility]ast[facility] Instructions Print Language: Turkmen Coding Level of Care Code 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
[2025-09-17 15:35] VITALS: BP 140/87; PULSE 81; O2SAT 98
== END 2025-09-17 15:46 | disposition home or self-care (01) ==
PROVIDERS: Emergency Provider Physician Assistant; PCP Internal Medicine
DX: F41.8 Other specified anxiety disorders (principal)
CPT/HCPCS: 99283